=== PATIENT | male | born 1990 | race Caucasian/White ===

== ENCOUNTER 2024-06-21 23:28 | Emergency (ER) | payer OTHER ==
[~2024-06-21] VITALS: Ht 172.7 cm; Wt 127.0 kg
[2024-06-21 23:36] VITALS: BP 124/78; PULSE 80; RESP 18; TEMP 36.8; O2SAT 96
== END 2024-06-21 23:54 | disposition home or self-care (01) ==
LOC: ER 23:28
DX: Z00.00 Encounter for general adult medical examination without abnormal findings (principal); Z91.148 Patient's other noncompliance with medication regimen for other reason; F41.9 Anxiety disorder, unspecified; F20.9 Schizophrenia, unspecified; F32.A Depression, unspecified; Z88.0 Allergy status to penicillin
CPT/HCPCS: 99283